=== PATIENT | female | born 1995 | race Caucasian/White ===

== ENCOUNTER 2022-02-05 19:00 | Inpatient (IN) | payer OTHER ==
[2022-02-06] MEDS ORDERED: Ibuprofen 800 MG TAB PO PRN (00:30)
[2022-02-06] MEDS ORDERED: Lidocaine 1% (PF) 30 ML VIAL SC PRN (00:30)
[2022-02-06] MEDS ORDERED: Carboprost 250 MCG/ML AMP IM PRN (00:30)
[2022-02-06] MEDS ORDERED: Diphenoxylate HCl/Atropine Tablet PO PRN ×2 (00:30)
[2022-02-06] MEDS ORDERED: Promethazine HCl 25 MG/ML VIAL IM PRN ×2 (00:30→06:15)
[2022-02-06] MEDS ORDERED: Acetaminophen 500 MG TAB PO PRN (00:30)
[2022-02-06] MEDS ORDERED: Ondansetron PF 4 MG/2 ML Vial IVP PRN ×3 (00:30→14:33)
[2022-02-06] MEDS ORDERED: hydrALAZINE 20 MG/ML VIAL SLOW IVP PRN ×2 (00:30→14:33)
[2022-02-06] MEDS ORDERED: Misoprostol 200 MCG TAB RC PRN (00:30)
[2022-02-06] MEDS ORDERED: Butorphanol Tartrate 1 MG/ML VIAL SLOW IVP PRN (00:30)
[2022-02-06] MEDS ORDERED: NS w/ Oxytocin 30 units 500 ML IV SCH (00:30)
[2022-02-06] MEDS ORDERED: Methylergonovine 0.2 MG/ML VIAL IM PRN (00:30)
[2022-02-06] MEDS ORDERED: NS w/ Oxytocin 30 units 500 ML IVPB SCH (00:30)
[2022-02-06] MEDS ORDERED: Lactated Ringer's 1,000 ML IV SCH ×2 (00:30)
[2022-02-06] MEDS ORDERED: Fentanyl 2 mcg/Bup 0.1% Cadd 100 ML ONE ×2 (03:13→10:02)
[2022-02-06 03:23] VITALS: BMI 35.5
[2022-02-06] MEDS ORDERED: Lactated Ringer's 500 ML IV PRN (06:15)
[2022-02-06] MEDS ORDERED: ePHEDrine/0.9% NaCl/PF SYRINGE 50 mg/10 ml IV PRN (06:15)
[2022-02-06] MEDS ORDERED: Moisturizing Cream (Eucerin) 113 GM JAR TOP PRN (06:15)
[2022-02-06] MEDS ORDERED: diphenhydrAMINE 50 MG/ML VIAL IVP PRN (06:15)
[2022-02-06] MEDS ORDERED: Naloxone HCl 0.4 mg/ml Vial IV PRN ×2 (06:15)
[2022-02-06] MEDS ORDERED: Acetaminophen 325 MG TAB PO PRN (06:15)
[2022-02-06] MEDS ORDERED: Fentanyl 100 MCG/2 ML VIAL SLOW IVP PRN (06:15)
[2022-02-06] MEDS ORDERED: Communication Order-Pharmacy FS SCH (06:30)
[2022-02-06 06:33] LABS: Hemoglobin 11.9 g/dL (12.0-15.5); Mean Corpuscular Hemoglobin 28.9 pg (27.0-33.0); Mean Platelet Volume 11.7 fl (7.4-10.4); Platelet Count 189 10x3/uL (150-450); RBC Distribution Width 13.5 % (11.5-14.5); Red Blood Cell (RBC) Count 4.12 10x6/uL (3.90-5.03); White Blood Cell (WBC) Count 8.3 10x3/uL (3.5-10.5)
[2022-02-06] MEDS ORDERED: Bupivacaine/Epinephrine 0.25% 30 ML VIAL ONE (08:00)
[2022-02-06 08:12] LABS: Hep B Surf Ag NonReactive S/CO (NonReactive)
[2022-02-06 08:13] LABS: Syphilis Antibody Nonreactive (Nonreactive); Syphilis Antibody Index 0.02 S/CO (<1.00 Non-Reactive)
[2022-02-06 08:28] LABS: SARS-CoV-2 NAA Rapid Test Not Detected (NotDetected)
[2022-02-06] MEDS ORDERED: Lanolin Ointment 7 GM TUBE TOP PRN (14:33)
[2022-02-06] MEDS ORDERED: HYDROcodone/Acetaminophen 5/325 mg Tablet PO PRN ×2 (14:33)
[2022-02-06] MEDS ORDERED: Boostrix 0.5 ML (Tdap) VIAL (>/=7 yrs of age) IM ONE (14:33)
[2022-02-06] MEDS ORDERED: diphenhydrAMINE 25 MG CAP PO PRN (14:33)
[2022-02-06] MEDS ORDERED: Milk Of Magnesia 30 ML UDCUP PO PRN (14:33)
[2022-02-06] MEDS ORDERED: Bisacodyl 10 MG SUPP PR PRN (14:33)
[2022-02-06] MEDS ORDERED: Benzocaine-Menthol 82.5 ML CAN TOP PRN (14:33)
[2022-02-06] MEDS ORDERED: Preparation H Ointment 28 GM TUBE PR PRN (14:33)
[2022-02-06] MEDS: Ferrous Sulfate 325 MG TAB PO SCH (14:48)
[2022-02-06] MEDS: Ibuprofen 800 MG TAB PO SCH ×3 (15:06→22:02)
[2022-02-06] MEDS: Docusate 100 MG CAP PO SCH (22:02)
[2022-02-07] MEDS: Ibuprofen 800 MG TAB PO SCH ×3 (05:47→22:21)
[2022-02-07] MEDS: Ferrous Sulfate 325 MG TAB PO SCH ×2 (07:31→18:18)
[2022-02-07] MEDS: Docusate 100 MG CAP PO SCH ×2 (08:04→22:21)
[2022-02-07] MEDS: Prenatal Vitamin 1 TAB PO SCH (08:04)
[2022-02-08] MEDS: Ibuprofen 800 MG TAB PO SCH ×2 (06:29→15:48)
[2022-02-08] MEDS: Prenatal Vitamin 1 TAB PO SCH (07:47)
[2022-02-08] MEDS: Docusate 100 MG CAP PO SCH (07:47)
[2022-02-08 08:10] VITALS: BP 121/65; TEMP 98.4
[2022-02-08] MEDS: Ferrous Sulfate 325 MG TAB PO SCH (14:37)
== END 2022-02-08 16:00 | disposition home or self-care (01) | DRG 807 ==
LOC: CSHLD 22:26 → UNDOADMIN 22:26 → CSHLD 02-06 00:13 → CSHPED 02-06 14:24 → CSHPP 02-06 14:26
PROVIDERS: ADMIT Obstetrics & Gynecology; ATTEND Obstetrics & Gynecology
PROC: 3E0334Z Introduction of Serum, Toxoid and Vaccine into Peripheral Vein, Percutaneous Approach (ICD-10-PCS; principal; 2022-02-06)
PROC: 10E0XZZ Delivery of Products of Conception, External Approach (ICD-10-PCS; 2022-02-06)
PROC: 0KQM0ZZ Repair Perineum Muscle, Open Approach (ICD-10-PCS; 2022-02-06)
PROC: 10907ZC Drainage of Amniotic Fluid, Therapeutic from Products of Conception, Via Natural or Artificial Opening (ICD-10-PCS; 2022-02-06)
DX: O48.0 Post-term pregnancy (principal); Z37.0 Single live birth; O26.893 Other specified pregnancy related conditions, third trimester; Z67.41 Type O blood, Rh negative; Z3A.40 40 weeks gestation of pregnancy; Z20.822 Contact with and (suspected) exposure to COVID-19; O77.0 Labor and delivery complicated by meconium in amniotic fluid; O70.1 Second degree perineal laceration during delivery
CPT/HCPCS: 36415; 51702; 85027; 86780; 86850; 86900; 86901; 87340; 99285; J2405; U0002